=== PATIENT | male | born 1980 | race Caucasian/White ===

== ENCOUNTER 2020-04-01 09:21 | Inpatient (IN) | payer OTHER ==
[~2020-04-01] VITALS: Ht 182.9 cm; Wt 74.4 kg
[~2020-04-01 09:21] MED LIST: CARAFATE1 G1 PO; PREVACID30 M2 PO; ULTRAM50 M1 PO; ZOFRAN ODT4 MG PO
--- NOTE | 2020-04-01 09:30 | NUR ---
PT WALKED TO THE ROOM UNDER THEIR OWN POWER TO BE TRIAGED IN THE ROOM.
[2020-04-01 10:09] LABS: IMMATURE GRANULOCYTES 0.6 % (0.0-5.0); MEAN CORPUSCULAR HGB 29.7 pG CALC (26.0-32.0); MEAN CORPUSCULAR HGB CONC 34.3 g/dL CAL (32.0-36.0); NEUT# 14.93 thou/uL (1.82-7.42); RED BLOOD COUNT 5.8 mill/uL (4.70-6.10); RED CELL DISTRI WIDTH 12.7 % (11.5-15.5)
[2020-04-01 10:14] LABS: HEMATOCRIT 50.2 % (39.0-50.0); HEMOGLOBIN 17.2 g/dl (14.0-18.0); MEAN CELL VOLUME 86.6 fL CALC (80.0-100.0)
[2020-04-01 10:22] LABS: BUN 28 mg/dL (9-20); BUN/CREATININE RATIO 27 (12-20 (CALC)); CARBON DIOXIDE 32 mmol/l (22-30); GFR > 60 ML/MIN (>=60 (CALC)); GFR FOR AFR.AMER. > 60 ML/MIN (>=60 (CALC)); LIPASE 111 u/l (23-300); POTASSIUM 3.7 mmol/l (3.5-5.1); SGOT/AST 34 u/l (17-59); SODIUM 134 mmol/l (137-146)
--- NOTE | 2020-04-01 10:25 | NUR ---
PT IS RESTING ON STRETCHER. NO DISTRESS NOTED
[2020-04-01 10:31] LABS: ALBUMIN 5.6 g/dL (3.2-5.0); ALKALINE PHOSPHATASE 111 u/l (38-126); ANION GAP 23 (6-22 (CALC)); BILIRUBIN, TOTAL 1.1 mg/dL (0.0-1.4); CHLORIDE 83 mmol/l (95-108); TOTAL PROTEIN 9.4 g/dL (6.3-8.2)
--- NOTE | 2020-04-01 11:25 | NUR ---
PT RESTING ON STRETCHER WITH EYES CLOSED; VSS; NO S/S OF DISTRESS NOTED; PT ADVISED OF CONTINUED WAIT TIME
[2020-04-01 11:41] LABS: URINE BILIRUBIN - DIPSTICK NEGATIVE (NEGATIVE); URINE BLOOD DIPSTICK NEGATIVE (NEGATIVE); URINE COLOR YELLOW; URINE GLUCOSE - DIPSTICK NEGATIVE (NEGATIVE); URINE KETONE NEGATIVE (NEGATIVE); URINE LEUK ESTERASE NEGATIVE (NEGATIVE); URINE NITRITE - DIPSTICK NEGATIVE (Negative); URINE PH 8.5 (4.5-8.0); URINE PROTEIN - DIPSTICK NEGATIVE (NEG-TRACE); URINE UROBILINOGEN - DIPSTICK 0.2 E.U./dL (0.2)
--- NOTE | 2020-04-01 12:26 | NUR ---
PT IS RESTING. NO DISTRESS NOTED
--- NOTE | 2020-04-01 12:40 | NUR ---
PT ARRIVED FROM ER VIA WC WITH STAFF. IV SITE IS FREE FROM REDNESS OR EDEMA.
--- NOTE | 2020-04-01 12:50 | NUR ---
Admission Note Report Given to: GRETCHEN MARION Transported by: X Wheelchair Stretcher Transported with: X Nurse Transporter X Patent IV O2 [employer] Faculty Member Location: ICU X [facility]
[2020-04-01 13:10] VITALS: BP 113/61
--- NOTE | 2020-04-01 13:10 | NUR ---
ASSESSMENT IS COMPLETED: IV SITE IS FREE FROM REDNESS OR EDEMA. HR IS REG,PULSES ARE STRONG X4, ABD IS SOFT WITH ACTIVE BS. BREATH SOUNDS ARE CLEAR,BILATERALLY., C/O ACID BURNING IN THE STOMACH. AND PAIN. EXPLAINED ABOUT THE NAUSEA MEDICATION NOT AVAILABLE AT THIS TIME. VERBALIZED UNDERSTANDING.
[2020-04-01 14:45] VITALS: BP 108/68
--- NOTE | 2020-04-01 15:16 | NUR ---
PT C/O STOMACH AND CHEST BURNING. ATTEMPTED TO GIVE THE GI COCKTAIL. PT REFUSED/.
--- NOTE | 2020-04-01 16:14 | NUR ---
PT IS RELAXING IN BED WITH NO DISTRESS NOTED. IV SITE IS FREE FROM REDNESS OR EDEMA.
[2020-04-01 19:00] VITALS: BP 110/67
[2020-04-02] VITALS (11 sets, daily range): BP systolic 105–131; BP diastolic 63–78
--- NOTE | 2020-04-02 04:38 | NUR ---
PT AWAKE IN BED. C/O NAUSEA. MAINTAINED RAPID SWAB AND SENT LAB.
--- NOTE | 2020-04-02 05:03 | NUR ---
PT AWAKE IN BED. C/O UNABLE TO SLEEP. MD NOTIFIED, NEW ORDERS FOR MELATONIN 3MG HS DAILY. THIS NURSE UNAWARE OF MELATONIN N/A, ATTEMPTED TO REACH MD, NO RESPONSE.
[2020-04-02 05:54] LABS: IMMATURE GRANULOCYTES 0.4 % (0.0-5.0); MEAN CELL VOLUME 90.3 fL CALC (80.0-100.0); MEAN CORPUSCULAR HGB 29.7 pG CALC (26.0-32.0); MEAN CORPUSCULAR HGB CONC 32.9 g/dL CAL (32.0-36.0); NEUT# 8.31 thou/uL (1.82-7.42); RED BLOOD COUNT 4.21 mill/uL (4.70-6.10); RED CELL DISTRI WIDTH 13.1 % (11.5-15.5)
[2020-04-02 06:05] LABS: HEMOGLOBIN 12.5 g/dl (14.0-18.0)
[2020-04-02 06:08] LABS: ALBUMIN 3.6 g/dL (3.2-5.0); ALKALINE PHOSPHATASE 66 u/l (38-126); ANION GAP 9 (6-22 (CALC)); BILIRUBIN, TOTAL 1.2 mg/dL (0.0-1.4); BUN 17 mg/dL (9-20); BUN/CREATININE RATIO 21 (12-20 (CALC)); CARBON DIOXIDE 29 mmol/l (22-30); CHLORIDE 99 mmol/l (95-108); CREATININE 0.8 mg/dL (0.7-1.3); GFR > 60 ML/MIN (>=60 (CALC)); GFR FOR AFR.AMER. > 60 ML/MIN (>=60 (CALC)); POTASSIUM 3.2 mmol/l (3.5-5.1); SGOT/AST 22 u/l (17-59); SODIUM 134 mmol/l (137-146); TOTAL PROTEIN 6.1 g/dL (6.3-8.2)
--- NOTE | 2020-04-02 07:38 | NUR ---
RECIEVED REPORT FROM GRETCHEN PAIGE. PT RESTING IN LOW FOWLERS POSITION WITH EYES CLOSED. INTRODUCED SELF TO PT AND DISCUSSED POC. ASSESSMENT AND VITALS OBTAINED AT THIS TIME. BP 119/72, HR 57, O2 98% ON ROOM AIR. RESPIRATIONS ARE EVEN AND UNLABORED WITH NO SIGNS OF DISTRESS. LUNG SOUNDS ARE DIMINSHED, PT DENIES ANY SOB. HEART RHYTHM IS NORMAL. BOWEL SOUNDS ARE ACTIVE IN ALL QUADRANTS WITH NO TENDERNESS. RADIAL AND PEDAL PULSES ARE STRONG WITH NORMAL CAPILLARY REFILL. #18 IN RAC RUNNING WITH NS @100 ML ORDERED, SITE APPEARS HEALTHY AND PATENT. PT COMPLAINS OF NAUSEA AND ABDOMINAL PAIN RATING 6/10, MORPHINE AND ZOFRAN TO BE ADMINISTERED. PT DENIES OF ANY OTHER PAIN OR DISCOMFORTS AT THIS TIME. ALL SAFTEY PRECAUTIONS ARE IN PLACE WITH CALL LIGHT IN REACH. WILL CONTINUE TO MONITOR
--- NOTE | 2020-04-02 08:02 | NUR ---
DR CADENA AT BEDSIDE DISCUSSING POC WITH PT
--- NOTE | 2020-04-02 09:38 | NUR ---
REASSESSMENT OF PAIN AT THIS TIME. RESULTING IN 12/06. PT STATES THAT MORPHINE IS WORKING. CONSENT FOR SCHEDULED EGD OBTAINED, PT DENIES ANY QUESTIONS. RESPIRATIONS ARE EVEN AND UNALBORED WIHT NO SIGNS OF DSITRESS. ALL SAFETY PRECAUTIONS ARE IN PLACE WITH CALL LIGTH IN REACH. WILL CONTINUE TO MONITOR
--- NOTE | 2020-04-02 10:12 | NUR ---
PT TRANSPORTED TO OR BY OR STAFF IN STABLE CONDITION VIA STREATCHER FOR EGD.
--- NOTE | 2020-04-02 11:18 | NUR ---
PT ARRIVED BACK TO [facility] ROOM 262 IN STABLE CONDITION VIA STREACHER IN STABLE CONDITION ACCOMPAINED BY OR STAFF. PT AMBULATED FROM STREATCHER TO BED WITH STEADY GAIT. RESPIRATIONS ARE EVEN AND UNLABORED WITH NO SIGN SOF DISTRESS. PT COMPLAINS OF ABDOMINAL BANG AT THIS TIME. NOTIFIED PT THAT PAIN MEDICATIONS WAS NOT AVAILABLE AT THIS TIME. PT VERBALIZED UNDERSTANDING. ALL SAFETY PRECAUTIONS ARE IN PLACE WITH CALL LIGHT IN REACH.WILL CONTINUE TO MONITOR.
--- NOTE | 2020-04-02 12:28 | NUR ---
PT COMPLAINS OF 6/10 PAIN IN ABD, MORPHINE TO BE ADMINSTERED. RESPIRATIONS ARE EVEN AND UNLABORED WITH NO SIGNS OF DISTRESS. PT DENIES OF ANY OTHER PAIN OR DISCOMFORTS . ALL SAFETY PRECAUTIONS ARE IN PLACE WITH CALL LIGHT IN REACH. WILL CONTINUE TO MONITOR
--- NOTE | 2020-04-02 13:08 | NUR ---
REASSESSMENT OF PAIN AT THIS TIME RESULTING IN 02/05, PT REPORTS THAT MORPHINE IS NOT HELPING, KATY VALENTINORP TO BE NOTIFIED. RESPIRATIONS ARE EVEN AND UNLABORED WITH NO SIGNS OF DISTRESS. ALL SAFETY PRECAUTIONS ARE IN PLACE WITH CALL LIGHT IN REACH. WILL CONTINUE TO MONITOR
--- NOTE | 2020-04-02 14:34 | NUR ---
NATHANS MAGIC MOUTH WASH TO BE ADMINISTERED, PT DRANK 1 OF 2 BOTTLES AND SPIT UP HALF OF THE ONE BOTTLE. PT REFUSED SECOND BOTTLE.
--- NOTE | 2020-04-02 16:10 | NUR ---
PT SLEEPING IN LOW FOWLERS POSITION. RESPIRTAIONS ARE EVEN AND UNLABORED WITH NO SIGNS OF DISTRESS. NO SIGNS OF ANY PAIN OR DISCOMFORTS AT THIS TIME. ALL SAFETY PRECAUTIONS ARE IN PLACE WITH CALL LIGHT IN REACH. WILL CONTINUE TO MONITOR.
--- NOTE | 2020-04-02 19:45 | NUR ---
PT RESTING IN BED, APPEARS COMFORTABLE AND IN NO DISTRESS. PHYSICAL ASSESMENT COMPLETE. PLAN OF CARE REVIEWED. PT VERBALIZES UNDERSTANDING AND DENIES QUESTIONS. PT REQUEST PAIN AND NAUSEA MEDICATION AND PRN SLEEPING PILL WITH HIS 2100 MEDICATIONS, ALSO REQUEST GATORADE AT THAT TIME. DENIES FURTHER NEEDS. CALL HOGAN WITHIN REACH, AGREES TO CALL PRN.
--- NOTE | 2020-04-02 21:20 | NUR ---
FRESH ICE WATER AND GATORADE PROVIDED PER PTS REQUEST. NEW IV SITE STARTED TO RFA 22G SL, X2 ATTEMPTS, PT TOLERATED PROCEDURE WELL. SCHEDULED MEDICATIONS ADMINISTERED, PRN MORPHINE, PRN PHENERGAN, AND PRN SONATA ADMINISTERED PER PTS REQUEST. SEE E-MAR. PT DENIES FURTHER NEEDS AT THIS TIME. CALL HOGAN WITHIN REACH. AGREES TO CALL PRN.
--- NOTE | 2020-04-02 23:30 | NUR ---
SCHEDULED ZOSYN ADMINISTERED, SEE E-MAR. PT REQUEST PAIN AND NAUSEA MEDICATION WHEN HE CAN HAVE IT NEXT. PT INFORMED HE IS DUE AT 0120, PT AGREES TO WAIT TILL THEN. DENIES FURTHER NEEDS AT THIS TIME. CALL HOGAN WITHIN REACH, AGREES TO CALL PRN.
--- NOTE | 2020-04-03 01:27 | NUR ---
MORPHINE AND ZOFRAN ADMINISTERED PER PTS REQUEST FOR C/O NAUSEA AND ABD PAIN 01/05. SEE E-MAR. DENIES FURTHER NEEDS AT THIS TIME. CALL HOGAN WITHIN REACH, AGREES TO CALL PRN.
--- NOTE | 2020-04-03 03:33 | NUR ---
PT APPEARS TO BE SLEEPING COMFORTABLY, NO APPARENT DISTRESS, RESPIRATIONS REGUALR AND UNLABORED. CALL HOGAN REMAINS WITHIN REACH.
--- NOTE | 2020-04-03 04:00 | NUR ---
INTERNATIONAL CONTROLLER IN ROOM DRAWING AM LABS.
[2020-04-03 04:41] VITALS: BP 110/67
[2020-04-03 05:28] LABS: HEMATOCRIT 37.4 % (39.0-50.0); HEMOGLOBIN 12.3 g/dl (14.0-18.0); MEAN CELL VOLUME 89.9 fL CALC (80.0-100.0); MEAN CORPUSCULAR HGB 29.6 pG CALC (26.0-32.0); MEAN CORPUSCULAR HGB CONC 32.9 g/dL CAL (32.0-36.0); RED BLOOD COUNT 4.16 mill/uL (4.70-6.10); RED CELL DISTRI WIDTH 12.5 % (11.5-15.5)
[2020-04-03 05:49] LABS: ANION GAP 9 (6-22 (CALC)); BUN 13 mg/dL (9-20); BUN/CREATININE RATIO 17 (12-20 (CALC)); CARBON DIOXIDE 25 mmol/l (22-30); CHLORIDE 104 mmol/l (95-108); CREATININE 0.8 mg/dL (0.7-1.3); GFR > 60 ML/MIN (>=60 (CALC)); GFR FOR AFR.AMER. > 60 ML/MIN (>=60 (CALC)); POTASSIUM 3.5 mmol/l (3.5-5.1); SODIUM 135 mmol/l (137-146)
--- NOTE | 2020-04-03 06:19 | NUR ---
ADMINISTERED PRN MORPHINE AND PRN PHENERGAN PER HIS REQUEST FOR C/O ABD PAIN 01/05. SCHEDULED MEDS ADMINISTERED. SEE E-MAR. PT DENIES FURTHER NEEDS. CALL HOGAN WITHIN REACH, AGREES TO CALL PRN.
--- NOTE | 2020-04-03 09:15 | NUR ---
RECIEVED REPORT FROM GRETCHEN ALBA. PT RESTING IN SEMI FOWLERS POSITION WATCHING TV UPON ENTERING ROOM. INTRODUCED SELF TO PT AND DISCUSSED POC. ASSESSMENT AND VITALS COMPLETED AT THIS TIME. BP 115/68, HR 59, O2 99% ON ROOM AIR. RESPIRATIONS ARE EVEN AND UNLABORED WITH NO SIGNS OF DISTRESS. LUNG SOUNDS ARE CLEAR. HEART RHYTHM IS NORMAL. BOWEL SOUNDS ARE ACTIVE IN ALL QUADRANTS, LAST REPORTED BM 03/31/20. WRITTER OFFERED MOM, PT REFUSED. RADIAL AND PEDAL PULSES ARE STRONG WITH NORMAL CAPILLARY REFILL.#22 IN RFA FLUSHED, SITE APPEARS HEALTHY AND PATENT. PT DENEIES OF ANY PAIN OR DISCOMFORTS AT THIS TIME. ALL SAFETY PRECAUTIONS ARE IN PLACE WITH CALL LIGHT IN REACH. WILL CONTINUE TO MONITOR
[2020-04-03 09:17] VITALS: BP 115/68
[2020-04-03] MEDS ORDERED: LORTAB 7.57.5 MG PO (11:41)
[2020-04-03] MEDS ORDERED: PROTONIX40 MG PO (11:41)
[2020-04-03] MEDS ORDERED: CARAFATE1 GM PO (11:41)
[2020-04-03] MEDS ORDERED: ZOFRAN4 MG/TAB PO (11:44)
--- NOTE | 2020-04-03 12:00 | NUR ---
PT RESTING IN LOW FOWLERS POSITIION UPON ENTERING ROOM. RESPIRATIONS ARE EVEN AND UNLABORED WITH NO SIGNS OF DISTRESS. PT DENIES ANY PAIN OR DISCOMFORTS AT THIS TIME.ALL SAFETY PRECAUTIONS ARE IN PLACE WITH CALL LIGHT IN REACH. WILL CONTINUE TO MONITOR
--- NOTE | 2020-04-03 15:01 | NUR ---
PT EDUCATED ON DISCHARGE INSTRUCTIONS AND NEW MEDICATIONS PROTNIX, ZOFRAN, LORTAB AND CARAFATE. PT VERBALIZED UNDERSTANDING. IV REMOVED WITH CATAHTER STILL INTACT. PT TOLERATED WELL. PT REQUESTED MORPHINE BEFORE DISCHARGE, APPROVED BY KEVIN VALENTINO. AWAITING FOR TRANSPORATATION AT THIS TIME. ALL SAFETY PRECAUTIONS ARE IN PLACE WITH CALL LGHT IN REACH. WILL CONTINUE TO MONITOR
--- NOTE | 2020-04-03 15:06 | NUR ---
Discharge instructions given. Patient verbalizes understanding of same. Discharged in stable condition via Wheelchair to Home with family. All belongings sent with pt. PT LEFT VIA WHEELCHAIR ACCOMPAINED BY WRITTER. PT LEFT WITH ALL BELONGINGS AND DISCHARGE INSTRUCTIONS
== END 2020-04-03 15:06 | disposition home or self-care (01) | DRG 378 ==
LOC: ED 09:21 → ED-I 11:10 → ED 11:32 → ED-I 11:33 → MS2 11:58
PROVIDERS: Family Medicine; Nurse Practitioner; ADMIT Internal Medicine; ATTEND Internal Medicine
PROC: 0DB48ZX Excision of Esophagogastric Junction, Via Natural or Artificial Opening Endoscopic, Diagnostic (ICD-10-PCS; principal; 2020-04-02)
PROC: 0DB78ZX Excision of Stomach, Pylorus, Via Natural or Artificial Opening Endoscopic, Diagnostic (ICD-10-PCS; 2020-04-02)
DX: K29.01 Acute gastritis with bleeding (principal); E87.3 Alkalosis; K20.9 Esophagitis, unspecified; Z87.11 Personal history of peptic ulcer disease; Z20.828 Contact with and (suspected) exposure to other viral communicable diseases
CPT/HCPCS: Q9967; S0164

== ENCOUNTER 2020-04-08 00:22 | Emergency (ER) | payer OTHER ==
[~2020-04-08] VITALS: Ht 182.9 cm; Wt 84.1 kg
[~2020-04-08 00:22] MED LIST changes: +CARAFATE1 GM PO; +LORTAB 7.57.5 MG PO; +PROTONIX40 MG PO; +ZOFRAN4 MG/TAB PO
[2020-04-08 01:09] LABS: HEMATOCRIT 37.1 % (39.0-50.0); HEMOGLOBIN 12.2 g/dl (14.0-18.0); IMMATURE GRANULOCYTES 0.4 % (0.0-5.0); MEAN CORPUSCULAR HGB 29.6 pG CALC (26.0-32.0); MEAN CORPUSCULAR HGB CONC 32.9 g/dL CAL (32.0-36.0); NEUT# 11.48 thou/uL (1.82-7.42); RED BLOOD COUNT 4.12 mill/uL (4.70-6.10)
[2020-04-08 01:38] LABS: ALBUMIN 4.2 g/dL (3.2-5.0); ALKALINE PHOSPHATASE 55 u/l (38-126); AMYLASE 78 u/l (30-110); ANION GAP 11 (6-22 (CALC)); BUN 12 mg/dL (9-20); BUN/CREATININE RATIO 18 (12-20 (CALC)); CARBON DIOXIDE 27 mmol/l (22-30); CHLORIDE 104 mmol/l (95-108); CREATININE 0.7 mg/dL (0.7-1.3); GFR > 60 ML/MIN (>=60 (CALC)); GFR FOR AFR.AMER. > 60 ML/MIN (>=60 (CALC)); LIPASE 88 u/l (23-300); POTASSIUM 3.6 mmol/l (3.5-5.1); SGOT/AST 22 u/l (17-59); SODIUM 137 mmol/l (137-146); TOTAL PROTEIN 6.9 g/dL (6.3-8.2)
[2020-04-08 01:48] LABS: BILIRUBIN, TOTAL 0.3 mg/dL (0.0-1.4)
[2020-04-08 02:07] LABS: MYOGLOBIN 36 ng/mL (0 - 121)
[2020-04-08 02:50] LABS: URINE BILIRUBIN - DIPSTICK NEGATIVE (NEGATIVE); URINE BLOOD DIPSTICK NEGATIVE (NEGATIVE); URINE COLOR YELLOW; URINE GLUCOSE - DIPSTICK NEGATIVE (NEGATIVE); URINE KETONE NEGATIVE (NEGATIVE); URINE LEUK ESTERASE NEGATIVE (NEGATIVE); URINE NITRITE - DIPSTICK NEGATIVE (Negative); URINE PROTEIN - DIPSTICK NEGATIVE (NEG-TRACE); URINE SPECIFIC GRAVITY 1.025; URINE UROBILINOGEN - DIPSTICK 0.2 E.U./dL (0.2)
[2020-04-08] MEDS ORDERED: LORTAB 1010 MG PO (03:07)
[2020-04-08 03:12] VITALS: BP 104/67
== END 2020-04-08 03:45 | disposition home or self-care (01) ==
LOC: ED 00:22
PROVIDERS: Emergency Medicine
DX: K29.00 Acute gastritis without bleeding (principal); Z87.11 Personal history of peptic ulcer disease
CPT/HCPCS: Q9967; S0164

== ENCOUNTER 2020-09-25 12:56 | Emergency (ER) | payer OTHER ==
[~2020-09-25] VITALS: Ht 182.9 cm; Wt 95.0 kg
[~2020-09-25 12:56] MED LIST changes: +GABAPENTIN400 M2 PO; +HYDROXYZINE HCL10 MG PO; +LORTAB 1010 MG PO; +PAXIL40 MG PO; +SUCRALFATE1 GM PO; +XANAX1 MG PO
[2020-09-25] MEDS ORDERED: PROTONIX40 M2 PO (13:32)
[2020-09-25 13:36] LABS: IMMATURE GRANULOCYTES 0.3 % (0.0-5.0); MEAN CELL VOLUME 89.6 fL CALC (80.0-100.0); MEAN CORPUSCULAR HGB 29.2 pG CALC (26.0-32.0); MEAN CORPUSCULAR HGB CONC 32.6 g/dL CAL (32.0-36.0); NEUT# 5.84 thou/uL (1.82-7.42); RED BLOOD COUNT 5.31 mill/uL (4.70-6.10); RED CELL DISTRI WIDTH 13.2 % (11.5-15.5)
[2020-09-25 13:45] LABS: HEMATOCRIT 47.6 % (39.0-50.0); HEMOGLOBIN 15.5 g/dl (14.0-18.0)
[2020-09-25 14:00] LABS: BUN 16 mg/dL (9-20); BUN/CREATININE RATIO 20 (12-20 (CALC)); CARBON DIOXIDE 24 mmol/l (22-30); CHLORIDE 106 mmol/l (95-108); CREATININE 0.8 mg/dL (0.7-1.3); ETHYL ALCOHOL 0 mg/dl (0-30); GFR > 60 ML/MIN (>=60 (CALC)); GFR FOR AFR.AMER. > 60 ML/MIN (>=60 (CALC)); SODIUM 142 mmol/l (137-146)
[2020-09-25 14:01] LABS: ALBUMIN 5.4 g/dL (3.2-5.0); ALKALINE PHOSPHATASE 96 u/l (38-126); ANION GAP 17 (6-22 (CALC)); BILIRUBIN, TOTAL 1.3 mg/dL (0.0-1.4); POTASSIUM 4.8 mmol/l (3.5-5.1); SGOT/AST 39 u/l (17-59); TOTAL PROTEIN 8.9 g/dL (6.3-8.2)
[2020-09-25 15:19] VITALS: BP 123/67
== END 2020-09-25 15:19 ==
LOC: ED 12:56
PROVIDERS: Family Medicine
DX: F91.9 Conduct disorder, unspecified (principal); F32.9 Major depressive disorder, single episode, unspecified; Z20.822 Contact with and (suspected) exposure to COVID-19

== ENCOUNTER 2020-10-15 06:49 | Day surgery (SDC) | payer OTHER ==
[~2020-10-15] VITALS: Ht 182.9 cm; Wt 90.7 kg
[~2020-10-15 06:49] MED LIST changes: +PROTONIX40 M2 PO
[2020-10-15] MEDS ORDERED: SEROQUEL25 MG PO (07:20)
[2020-10-15 09:43] VITALS: BP 113/75
== END 2020-10-15 10:15 | disposition home or self-care (01) ==
LOC: ORM 06:49
PROVIDERS: ATTEND Anesthesiology Pain Medicine
DX: M17.11 Unilateral primary osteoarthritis, right knee (principal); M67.864 Other specified disorders of tendon, left knee; M76.31 Iliotibial band syndrome, right leg; Z01.84 Encounter for antibody response examination

== ENCOUNTER 2020-12-09 18:41 | Emergency (ER) | payer OTHER ==
[~2020-12-09 18:41] MED LIST changes: +HYDROCO/APAP1 TA9 PO; +NORCO1 TA2 PO; +QUETIAPINE FUM300 MG PO; +SEROQUEL25 MG PO; +TRAZODONE100 MG PO
[2020-12-09 20:13] LABS: HEMOGLOBIN 12.2 g/dl (14.0-18.0); IMMATURE GRANULOCYTES 0.4 % (0.0-5.0); MEAN CORPUSCULAR HGB 29.5 pG CALC (26.0-32.0); MEAN CORPUSCULAR HGB CONC 32.1 g/dL CAL (32.0-36.0); NEUT# 7.6 thou/uL (1.82-7.42); RED BLOOD COUNT 4.13 mill/uL (4.70-6.10); RED CELL DISTRI WIDTH 13.5 % (11.5-15.5)
[2020-12-09 20:20] LABS: ALKALINE PHOSPHATASE 61 u/l (38-126); BUN 11 mg/dL (9-20); BUN/CREATININE RATIO 17 (12-20 (CALC)); CARBON DIOXIDE 25 mmol/l (22-30); CHLORIDE 100 mmol/l (95-108); CREATININE 0.7 mg/dL (0.7-1.3); ETHYL ALCOHOL 0 mg/dl (0-30); GFR > 60 ML/MIN (>=60 (CALC)); GFR FOR AFR.AMER. > 60 ML/MIN (>=60 (CALC)); SGOT/AST 68 u/l (17-59)
[2020-12-09 20:21] LABS: ALBUMIN 4.2 g/dL (3.2-5.0); ANION GAP 13 (6-22 (CALC)); BILIRUBIN, TOTAL 0.5 mg/dL (0.0-1.4); SODIUM 134 mmol/l (137-146); TOTAL PROTEIN 6.8 g/dL (6.3-8.2)
[2020-12-09 20:31] LABS: URINE BILIRUBIN - DIPSTICK NEGATIVE (NEGATIVE); URINE BLOOD DIPSTICK NEGATIVE (NEGATIVE); URINE COLOR YELLOW; URINE GLUCOSE - DIPSTICK 250 mg/dL (NEGATIVE); URINE KETONE NEGATIVE (NEGATIVE); URINE LEUK ESTERASE NEGATIVE (NEGATIVE); URINE PH 6.5 (4.5-8.0); URINE PROTEIN - DIPSTICK NEGATIVE (NEG-TRACE); URINE UROBILINOGEN - DIPSTICK 0.2 E.U./dL (0.2)
[2020-12-09 20:32] LABS: URINE NITRITE - DIPSTICK NEGATIVE (Negative)
[2020-12-09 23:34] VITALS: BP 115/69
[2020-12-16] MEDS ORDERED: NORCO1 TA2 PO ×2 (08:04→08:10)
[2021-01-13] MEDS ORDERED: LORTAB 1010 MG PO (08:29)
[2021-02-17] MEDS ORDERED: ALPRAZOLAM ER1 MG PO (07:33)
[2021-02-17] MEDS ORDERED: LORTAB 1010 MG PO (07:40)
[2021-03-17] MEDS ORDERED: LORTAB 1010 MG PO ×2 (08:01→08:03)
[2021-04-14] MEDS ORDERED: LORTAB 1010 MG PO (08:04)
== END 2020-12-09 23:27 ==
LOC: ED 18:41
PROVIDERS: Emergency Medicine
DX: F13.10 Sedative, hypnotic or anxiolytic abuse, uncomplicated (principal); R73.9 Hyperglycemia, unspecified; F41.9 Anxiety disorder, unspecified; Z87.11 Personal history of peptic ulcer disease; Z51.81 Encounter for therapeutic drug level monitoring; Z79.891 Long term (current) use of opiate analgesic